=== PATIENT | male | born 1965 | race Caucasian/White ===

== ENCOUNTER 2018-04-01 14:05 | Inpatient (IN) | payer MEDICARE ==
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
--- NOTE | 2018-04-01 15:17 | RADIOLOGY REPORT (SQ) ---
EXAM DESCRIPTION: CHEST SINGLE VIEW COMPLETED DATE/TIME: 04/01/2018 2:59 pm REASON FOR STUDY: sudden hypoxemia COMPARISON: None. EXAM PARAMETERS: NUMBER OF VIEWS: One view. TECHNIQUE: Single frontal radiographic view of the chest acquired. RADIATION DOSE: NA LIMITATIONS: None. FINDINGS: LUNGS AND PLEURA: There is slight haziness in right lower lung. Minimal pleural effusions cannot be excluded. MEDIASTINUM AND HILAR STRUCTURES: No masses. Contour normal. HEART AND VASCULAR STRUCTURES: Heart normal in size. Normal vasculature. BONES: No acute findings. HARDWARE: None in the chest. OTHER: No other significant finding. IMPRESSION: Minimal pleural effusions. Cannot exclude a very limited middle lobe or right lower lob e pneumonia. TECHNICAL DOCUMENTATION: JOB ID: [id number] [employer]- All Rights Reserved Reading location - IP/workstation name: [email or web address]
[2018-04-01 15:32] LABS: VENOUS BLOOD BASE EXCESS 5.8 mmol/L; VENOUS BLOOD HCO3 34.6 mmol/L (20-32); VENOUS BLOOD PH 7.34 (7.30-7.42)
[2018-04-01 15:35] LABS: ABSOLUTE BASOPHILS # (AUTO) 0.1 10^3/uL (0.0-0.2); ABSOLUTE LYMPHOCYTES (AUTO) 0.7 10^3/uL (0.5-4.7); ABSOLUTE MONOCYTES (AUTO) 0.8 10^3/uL (0.1-1.4); ABSOLUTE NEUT (AUTO) 4.9 10^3/uL (1.7-8.2); BASOPHILS % (AUTO) 0.9 % (0-2); EOSINOPHILS % (AUTO) 0.2 % (0-6); HEMATOCRIT 55.9 % (37.9-51.0); HEMOGLOBIN 17.6 g/dL (13.5-17.0); LYMPHOCYTES % (AUTO) 11.5 % (13-45); MEAN CORPUSCULAR HEMOGLOBIN 29.6 pg (27.0-33.4); MEAN CORPUSCULAR HGB CONC 31.5 g/dL (32.0-36.0); MEAN CORPUSCULAR VOLUME 94 fl (80-97); MONOCYTES % (AUTO) 12.5 % (3-13); PLATELET COUNT 217 10^3/uL (150-450); RED BLOOD COUNT 5.93 10^6/uL (4.35-5.55); RED CELL DISTRIBUTION WIDTH 18.1 % (11.5-14.0); SEGMENTED NEUTROPHILS % (AUTO) 74.9 % (42-78); TOTAL CELLS COUNTED % (AUTO) 100 %; WHITE BLOOD COUNT 6.5 10^3/uL (4.0-10.5)
[2018-04-01 15:36] LABS: INTERNATIONAL RATION (INR) 1.32
[2018-04-01 15:42] LABS: VENOUS BLOOD PCO2 66.4 mmHg (35-63)
[2018-04-01 15:56] LABS: ALANINE AMINOTRANSFERASE 149 U/L (21-72); ALBUMIN 3.2 g/dL (3.5-5.0); ALKALINE PHOSPHATASE 74 U/L (38-126); ANION GAP 9 (5-19); ASPARTATE AMINO TRANSFERASE 248 U/L (17-59); BILIRUBIN,TOTAL 1.2 mg/dL (0.2-1.3); BLOOD UREA NITROGEN 35 mg/dL (7-20); CARBON DIOXIDE 38 mmol/L (22-30); CHLORIDE 88 mmol/L (98-107); CREATINE KINASE 39 U/L (55-170); GLUCOSE 93 mg/dL (75-110); POTASSIUM 4.9 mmol/L (3.6-5.0); SODIUM 134.8 mmol/L (137-145); TOTAL PROTEIN 7.6 g/dL (6.3-8.2)
[2018-04-01 16:08] LABS: CREATINE KINASE MB 2.31 ng/mL (<4.55)
[2018-04-01 16:13] LABS: TROPONIN I 0.046 ng/mL
--- NOTE | 2018-04-01 16:44 | RADIOLOGY REPORT (SQ) ---
EXAM DESCRIPTION: CTA CHEST COMPLETED DATE/TIME: 04/01/2018 4:28 pm REASON FOR STUDY: severe hypoxemia COMPARISON: None. TECHNIQUE: CT scan of the chest performed using helical scanning technique with dynamic intravenous contrast injection. Images reviewed with lung, soft tissue and bone windows. Reconstructed coronal and sagittal MPR images reviewed. Additional 3 dimensional post-processing performed to develop Maximal Intensity Projection images (IN P). All images stored on PACS. All CT scanners at this facility use dose modulation, iterative reconstruction, and/or weight based d osing when appropriate to reduce radiation dose to as low as reasonably achievable (ALARA). [facility]: Dose Right [facility]: CareDose [facility]: Dose Right [facility]: Teradose 4D [facility]: Faculte CONTRAST TYPE AND DOSE: contrast/concentration: Isovue 370.00 mg/ml; Total Contrast Delivered: 82.9 ml; Total Saline Delivered: 85.1 ml Contrast bolus optimized for the pulmonary arteries. Not diagnostic for the aorta. RENAL FUNCTION: BUN 35 creatinine 1.2 RADIATION DOSE: CT Rad equipment meets quality standard of care and radiation dose reduction techniq ues were employed. CTDIvol: 24.8 - 32.0 mGy. DLP: 1222 mGy-cm. . LIMITATIONS: None. FINDINGS: LUNGS AND PLEURA: There is a moderate right pleural effusion and there is a small left ple ural effusion. There is compressive atelectasis in the adjacent lung. There is greater opacificatio n in the right lower lobe. AORTA AND GREAT VESSELS: No aneurysm. Contrast bolus not optimized for the aorta. HEART: No pericardial effusion. PULMONARY ARTERIES: No emboli visualized in the main pulmonary arteries or the segmental branches. HILAR AND MEDIASTINAL STRUCTURES: No identified masses or abnormal nodes. HARDWARE: None in the chest. UPPER ABDOMEN: A small gallstone is seen. Fatty infiltration of the liver. THYROID AND OTHER SOFT TISSUES: No masses. No adenopathy. BONES: No acute or significant finding. 3D MIPS: Confirm above findings. OTHER: No other significant finding. IMPRESSION: 1. There is no evidence of pulmonary embolus. 2. Moderate right pleural effusion with small left pleural effusion. 3. Airspace disease in the right base. Atelectasis versus pneumonia. Minimal subsegmental atelecta sis in the left base. 4. Cholelithiasis. Fatty infiltration of the liver. COMMENT: Quality ID # [id number]: Final reports with documentation of one or more dose reduction techniques (e.g., Automated exposure control, adjustment of the mA and/or kV according to patient size, use of iterative reconstruction technique) TECHNICAL DOCUMENTATION: JOB ID: [id number] [employer]- All Rights Reserved Reading location - IP/workstation name: [email or web address]
[2018-04-01] MEDS ORDERED: FAMOTIDINE INJ/PF 20 MG/2 ML SDV IV ONE (16:49)
[2018-04-01] MEDS ORDERED: METHYLPREDNISOLONE INJ 125 MG/2 ML SDV IV ONE (16:49)
[2018-04-01] MEDS ORDERED: DIPHENHYDRAMINE HCL 50 MG/ML VIAL IV ONE (16:49)
[2018-04-01] MEDS ORDERED: CEFTRIAXONE INJ 1000 MG VIAL IV ONE (16:50)
[2018-04-01] MEDS ORDERED: METHYLPREDNISOLONE INJ 125 MG/2 ML SDV ONE (16:52)
[2018-04-01] MEDS ORDERED: DIPHENHYDRAMINE HCL 50 MG/ML VIAL ONE (16:52)
[2018-04-01 18:20] LABS: APPEARANCE,URINE SLIGHTLY-CLOUDY; BILIRUBIN,URINE NEGATIVE (NEGATIVE); COLOR,URINE AMBER; GLUCOSE, URINE 50 mg/dL (NEGATIVE); KETONES,URINE NEGATIVE (NEGATIVE); LEUKOCYTE ESTERASE,URINE NEGATIVE (NEGATIVE); NITRITE,URINE NEGATIVE (NEGATIVE); PROTEIN,URINE 30 mg/dL (NEGATIVE); URINE SPECIFIC GRAVITY 1.021
[2018-04-01] MEDS ORDERED: IPRATROPIUM/ALBUTEROL 0.5-2.5 MG/3 ML AMPUL NEB PRN (18:38)
[2018-04-01] MEDS ORDERED: DEXTROSE 40% GEL 15 GM TUBE PO PRN ×2 (18:38)
[2018-04-01] MEDS ORDERED: GLUCAGON,HUMAN RECOMB 1 MG INJ SUBCUT PRN (18:38)
[2018-04-01] MEDS ORDERED: DEXTROSE 50%-WATER 25 GM/50 ML DISP.SYRIN IV PRN ×2 (18:38)
[2018-04-01 19:32] LABS: URINE AMPHETAMINES SCREEN NEGATIVE; URINE BARBITURATES SCREEN NEGATIVE; URINE BENZODIAZEPINES SCREEN NEGATIVE; URINE COCAINE SCREEN NEGATIVE; URINE MARIJUANA (THC) SCREEN UNCONFIRMED POSITIVE; URINE METHADONE SCREEN NEGATIVE; URINE PHENCYCLIDINE SCREEN NEGATIVE
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
[2018-04-01] MEDS ORDERED: LEVOFLOXACIN 750 MG/D5W RTU 750 MG/150 ML RTUPB IV ONE (20:00)
--- NOTE | 2018-04-01 20:19 | RADIOLOGY REPORT (SQ) ---
EXAM DESCRIPTION: CT HEAD WITHOUT COMPLETED DATE/TIME: 04/01/2018 7:54 pm REASON FOR STUDY: Altered Mental Status COMPARISON: None. TECHNIQUE: Axial images acquired through the brain without intravenous contrast. Images reviewed wi th bone, brain and subdural windows. Additional sagittal and coronal reconstructions were generated. Images stored on PACS. All CT scanners at this facility use dose modulation, iterative reconstruction, and/or weight based d osing when appropriate to reduce radiation dose to as low as reasonably achievable (ALARA). [facility]: Dose Right [facility]: CareDose [facility]: Dose Right [facility]: Teradose 4D [facility]: Smart MaPS RADIATION DOSE: CT Rad equipment meets quality standard of care and radiation dose reduction techniq ues were employed. CTDIvol: 53.2 mGy. DLP: 1044 mGy-cm. mGy. LIMITATIONS: None. FINDINGS: VENTRICLES: Normal size and contour. CEREBRUM: No masses. No hemorrhage. No midline shift. No evidence for acute infarction. Normal gra y/white matter differentiation. No areas of low density in the white matter. CEREBELLUM: No masses. No hemorrhage. No alteration of density. No evidence for acute infarction. EXTRAAXIAL SPACES: No fluid collections. No masses. ORBITS AND GLOBE: No intra- or extraconal masses. Normal contour of globe without masses. CALVARIUM: No fracture. PARANASAL SINUSES: No fluid or mucosal thickening. SOFT TISSUES: No mass or hematoma. OTHER: No other significant finding. IMPRESSION: NORMAL BRAIN CT WITHOUT CONTRAST. EVIDENCE OF ACUTE STROKE: NO. COMMENT: Quality ID # [id number]: Final reports with documentation of one or more dose reduction techniques (e.g., Automated exposure control, adjustment of the mA and/or kV according to patient size, use of iterative reconstruction technique) TECHNICAL DOCUMENTATION: JOB ID: [id number] [employer]- All Rights Reserved Reading location - IP/workstation name: [email or web address]
[2018-04-01] MEDS ORDERED: NICOTINE 21 MG/24 HR PATCH.TD24 TD ONE (20:30)
--- NOTE | 2018-04-01 22:28 | EKG REPORT ---
SEVERITY:- BORDERLINE ECG - SINUS RHYTHM PROBABLE LEFT ATRIAL ABNORMALITY BORDERLINE T WAVE ABNORMALITIES : Confirmed by: Timoteo Greenwood 01-Apr-2018 22:27:55
[2018-04-01] MEDS: METHYLPREDNISOLONE INJ 40 MG/1 ML SDV IV SCH (23:03)
[2018-04-01] MEDS: DEXTROSE 5%-1/2 NORMAL SALINE 1,000 ML IV PRN (23:05)
[2018-04-02] MEDS: METHYLPREDNISOLONE INJ 40 MG/1 ML SDV IV SCH ×3 (05:03→21:21)
[2018-04-02 07:45] LABS: HEMATOCRIT 54.4 % (37.9-51.0); HEMOGLOBIN 17.6 g/dL (13.5-17.0); MEAN CORPUSCULAR HEMOGLOBIN 29.8 pg (27.0-33.4); MEAN CORPUSCULAR HGB CONC 32.3 g/dL (32.0-36.0); MEAN CORPUSCULAR VOLUME 92 fl (80-97); PLATELET COUNT 147 10^3/uL (150-450); RED CELL DISTRIBUTION WIDTH 17.3 % (11.5-14.0)
[2018-04-02 09:30] LABS: ALANINE AMINOTRANSFERASE 118 U/L (21-72); ALKALINE PHOSPHATASE 65 U/L (38-126); ANION GAP 9 (5-19); ASPARTATE AMINO TRANSFERASE 105 U/L (17-59); BILIRUBIN,DIRECT 0.8 mg/dL (0.0-0.4); BLOOD UREA NITROGEN 26 mg/dL (7-20); CALCIUM 9.3 mg/dL (8.4-10.2); CARBON DIOXIDE 38 mmol/L (22-30); CHLORIDE 93 mmol/L (98-107); GLUCOSE 121 mg/dL (75-110); SODIUM 139.5 mmol/L (137-145); TOTAL PROTEIN 6.6 g/dL (6.3-8.2)
[2018-04-02 10:14] LABS: ARTERIAL BLOOD H2CO3 2.01 mmol/L (1.05-1.35); ARTERIAL BLOOD HCO3 39.9 mmol/L (20-26); ARTERIAL BLOOD O2 SATURATION 91.4 % (94-98); ARTERIAL BLOOD PCO2 66.9 mmHg (35-45); ARTERIAL BLOOD PH 7.39 (7.35-7.45); ARTERIAL BLOOD PO2 63.3 mmHg (80-100); ARTERIAL BLOOD TOTAL CO2 41.9 mmol/L (23-27)
[2018-04-02 10:23] LABS: ARTERIAL BLOOD FIO2 3L
[2018-04-02 11:01] LABS: FREE T3 3.79 pg/mL (2.77-5.27); FREE T4 (FREE THYROXINE) 0.92 ng/dL (0.78-2.19)
[2018-04-02 11:15] LABS: THYROID STIMULATING HORMONE 0.4 uIU/mL (0.47-4.68)
[2018-04-02] MEDS ORDERED: LEVALBUTEROL HCL NEB 1.25 MG/3 ML AMPUL NEB PRN (11:32)
[2018-04-02] MEDS: NICOTINE 21 MG/24 HR PATCH.TD24 TD SCH ×2 (12:19→13:45)
[2018-04-02] MEDS: IPRATROPIUM/ALBUTEROL 0.5-2.5 MG/3 ML AMPUL NEB SCH ×2 (13:03→19:43)
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
[2018-04-02] MEDS: LEVOFLOXACIN 750 MG/D5W RTU 750 MG/150 ML RTUPB IV SCH (18:32)
[2018-04-02] MEDS: DEXTROSE 5%-1/2 NORMAL SALINE 1,000 ML IV PRN (18:32)
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
[2018-04-03] MEDS: IPRATROPIUM/ALBUTEROL 0.5-2.5 MG/3 ML AMPUL NEB SCH ×4 (01:54→19:52)
[2018-04-03] MEDS ORDERED: METOPROLOL TARTRATE 25 MG TABLET PO ONE (02:00)
--- NOTE | 2018-04-03 11:48 | Physician Advisory Note ---
Physician Advisor ProgressNote .: [facility] have [facility] medical record for this patient. Physician Advisor Statement: Nice documenting of pleural effusion, Ac Resp Failure (O2 sat 50% initially for EMS per nurse note, pt persistently needing 4+L O2), & the mental status changes of hypersomnolence & difficulty arousing. Please consider documenting, if you agree: 1. "Pneumonia, suspect gram-___ type, evidenced by " [Any cough/sputum/ rales/rhonchi/egophony?] - H&P already states decreased BS, describes AMS. Pt has pleural effusion, infiltrate. - ED dr/nursing document SOB, WALLACE, weakness. 2. "Delirium, due to " ['metabolic encephalopathy due to hypercapnea + hypoxemia + pneumonia ... on top of TBI'?] - Code for delirium indicates a psychiatric cause such as shelley or dementia, low acuity. - Code for encephalopathy indicates a medical cause, higher acuity. 3. "COPD w/exacerbation" - H&P suggests this dx; please include this in all notes unless stating "ruled out". - Pt smokes, (+)wheezing, getting Solumedrol... Thanks! CK
[2018-04-03] MEDS: METHYLPREDNISOLONE INJ 40 MG/1 ML SDV IV SCH ×2 (12:02→21:33)
[2018-04-03] MEDS: NICOTINE 21 MG/24 HR PATCH.TD24 TD SCH ×2 (12:03→14:38)
[2018-04-03] MEDS: METOPROLOL TARTRATE 25 MG TABLET PO SCH ×2 (12:06→17:19)
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
[2018-04-03] MEDS ORDERED: DIVALPROEX SODIUM 500 MG TAB.SR.24H PO ONE (13:00)
[2018-04-03] MEDS ORDERED: METHYLPHENIDATE HCL 5 MG TABLET PO PRN (13:29)
[2018-04-03] MEDS: METHYLPHENIDATE HCL 5 MG TABLET PO SCH (14:34)
[2018-04-03] MEDS ORDERED: FLUOXETINE HCL 20 MG CAPSULE PO ONE (14:45)
[2018-04-03] MEDS: LEVOFLOXACIN 750 MG/D5W RTU 750 MG/150 ML RTUPB IV SCH (17:22)
--- NOTE | 2018-04-03 20:44 | XCELERA REPORT ---
[address] [address] Transthoracic Echocardiogram Report Name: NAZARIO CASH Age: 52 yrs Gender: Male : 1965 Patient Status: Inpatient Patient Location: [address] [place] [address] Study Date: 04/03/2018 09:12 AM Height: 72 in Weight: 264 lb BSA: 2.4 m2 Procedure: A complete two-dimensional transthoracic echocardiogram was performed (2D, M-mode, spectral and color flow Doppler). The study was technically difficult with many images being suboptimal in quality. Reason For Study: Pleural effusion Ordering Physician: DIETER QUIROZ Performed By: Viri Teran Interpretation Summary The left ventricular ejection fraction is normal. Doppler measurements suggest pseudonormalized left ventricular relaxation, which is associated with grade II/IV or mild to moderate diastolic dysfunction There is mild concentric left ventricular hypertrophy. The left ventricle is grossly normal size. Wall motion cannot be accurately commented on, but no definite regional wall motion abnormalities noted. The right ventricle is mildly dilated. The right ventricular systolic function is borderline reduced. There is a trace amount of mitral regurgitation There is no mitral valve stenosis. There is no aortic valve stenosis No aortic regurgitation is present. There is a trace to mild amount of tricuspid regurgitation There is mild to moderate pulmonary hypertension by echo Right ventricular systolic pressure is estimated to be elevated at 40- 50mmHg. The aortic root is not well visualized but is probably normal size. The inferior vena cava was not well visualized There is no pericardial effusion. MMode/2D Measurements & Calculations RVDd: 3.1 cm LVIDd: 4.6 cm FS: 27.9 % Ao root diam: 2.6 cm IVSd: 1.0 cm LVIDs: 3.3 cm EDV(Teich): 96.0 ml LVPWd: 1.0 cm ESV(Teich): 44.1 ml Ao root area: 5.3 cm2 EF(Teich): 54.1 % LA dimension: 4.0 cm Doppler Measurements & Calculations MV E max ambika: MV P1/2t max ambika: Ao V2 max: LV V1 max P.6 cm/sec 108.1 cm/sec 158.8 cm/sec 9.7 mmHg MV A max ambika: MV P1/2t: 45.8 msec Ao max PG: LV V1 max: 83.9 cm/sec 10.1 mmHg 155.5 cm/sec MV E/A: 1.3 MVA(P1/2t): 4.8 cm2 MV dec slope: 691.4 cm/sec2 MV dec time: 0.15 sec PA V2 max: TR max ambika: 108.1 cm/sec 289.1 cm/sec PA max PG: TR max P.4 mmHg 4.7 mmHg Left Ventricle The left ventricle is grossly normal size. There is mild concentric left ventricular hypertrophy. The left ventricular ejection fraction is normal. Doppler measurements suggest pseudonormalized left ventricular relaxation, which is associated with grade II/IV or mild to moderate diastolic dysfunction. Wall motion cannot be accurately commented on, but no definite regional wall motion abnormalities noted. Right Ventricle The right ventricle is mildly dilated. The right ventricular systolic function is borderline reduced. Atria The right atrium is mildly dilated. The left atrium is mildly dilated. Interarterial septum not well visualized and not well dopplered. Cannot comment on ASD/PFO presence. Mitral Valve The mitral valve is grossly normal. There is no mitral valve stenosis. There is a trace amount of mitral regurgitation. Aortic Valve The aortic valve is not well visualized secondary to technical limitations. There is no aortic valve stenosis. No aortic regurgitation is present. Tricuspid Valve The tricuspid valve is not well visualized secondary to technical limitations. There is no tricuspid stenosis. There is a trace to mild amount of tricuspid regurgitation. There is mild to moderate pulmonary hypertension by echo. Right ventricular systolic pressure is estimated to be elevated at 40-50mmHg. Pulmonic Valve The pulmonic valve is not well visualized. Great Vessels The aortic root is not well visualized but is probably normal size. The inferior vena cava was not well visualized. Effusions There is no pericardial effusion. : DIETER QUIROZ > [place] [place]
[2018-04-03] MEDS: DEXTROSE 5%-1/2 NORMAL SALINE 1,000 ML IV PRN (21:35)
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
[2018-04-04] MEDS: IPRATROPIUM/ALBUTEROL 0.5-2.5 MG/3 ML AMPUL NEB SCH ×4 (00:43→20:00)
[2018-04-04] MEDS: METHYLPHENIDATE HCL 5 MG TABLET PO SCH ×3 (05:37→14:37)
[2018-04-04 08:22] LABS: HEMOGLOBIN 17.3 g/dL (13.5-17.0); MEAN CORPUSCULAR HEMOGLOBIN 29.4 pg (27.0-33.4); MEAN CORPUSCULAR HGB CONC 31.5 g/dL (32.0-36.0); MEAN CORPUSCULAR VOLUME 93 fl (80-97); PLATELET COUNT 132 10^3/uL (150-450); RED BLOOD COUNT 5.89 10^6/uL (4.35-5.55); RED CELL DISTRIBUTION WIDTH 17.7 % (11.5-14.0)
[2018-04-04 09:04] LABS: WHITE BLOOD COUNT 13.1 10^3/uL (4.0-10.5)
[2018-04-04 09:06] LABS: ABSOLUTE LYMPHOCYTES# (MANUAL) 0.7 10^3/uL (0.5-4.7); ABSOLUTE MONOCYTES # (MANUAL) 0.7 10^3/uL (0.1-1.4); ABSOLUTE NEUTROPHILS# (MANUAL) 11.8 10^3/uL (1.7-8.2); ANISOCYTOSIS 2+; BASOPHILS % (MANUAL) 0 % (0-2); EOSINOPHILS % (MANUAL) 0 % (0-6); LYMPHOCYTES % (MANUAL) 5 % (13-45); MONOCYTES % (MANUAL) 5 % (3-13); NUCLEATED RED BLOOD CELLS 1 /100 WBC (0); PLATELET COMMENT ADEQUATE; SEGMENTED NEUTROPHILS % (MAN) 90 % (42-78); TOTAL CELLS COUNTED 100
[2018-04-04] MEDS: NICOTINE 21 MG/24 HR PATCH.TD24 TD SCH ×2 (09:33→13:01)
[2018-04-04] MEDS: FLUOXETINE HCL 20 MG CAPSULE PO SCH (09:33)
[2018-04-04] MEDS: PREDNISONE 20 MG TABLET PO SCH ×2 (09:33→17:48)
[2018-04-04] MEDS: METOPROLOL TARTRATE 25 MG TABLET PO SCH ×2 (09:34→17:48)
[2018-04-04 11:10] LABS: BLOOD UREA NITROGEN 26 mg/dL (7-20); CALCIUM 9.7 mg/dL (8.4-10.2); CARBON DIOXIDE 37 mmol/L (22-30); CHLORIDE 95 mmol/L (98-107); GLUCOSE 147 mg/dL (75-110); POTASSIUM 4.5 mmol/L (3.6-5.0)
[2018-04-04 11:11] LABS: ANION GAP 6 (5-19); SODIUM 138.4 mmol/L (137-145)
[2018-04-04 11:54] LABS: ARTERIAL BLOOD H2CO3 1.61 mmol/L (1.05-1.35); ARTERIAL BLOOD HCO3 34.5 mmol/L (20-26); ARTERIAL BLOOD O2 SATURATION 97.5 % (94-98); ARTERIAL BLOOD PCO2 53.4 mmHg (35-45); ARTERIAL BLOOD PH 7.43 (7.35-7.45); ARTERIAL BLOOD PO2 97.4 mmHg (80-100); ARTERIAL BLOOD TOTAL CO2 36.1 mmol/L (23-27)
[2018-04-04 11:55] LABS: ARTERIAL BLOOD FIO2 4L
[2018-04-04] MEDS ORDERED: NICOTINE 21 MG/24 HR PATCH.TD24 TD ONE (17:00)
[2018-04-04] MEDS: CEFTRIAXONE 2 GM/D5W RTU 2 GM/50 ML RTUPB IV SCH (17:48)
[2018-04-04] MEDS ORDERED: HYDRALAZINE HCL INJ/PF 20 MG/1 ML SDV IV PRN (18:16)
--- NOTE | 2018-04-04 18:33 | PDOC PROGRESS REPORT ---
Subjective Progress Note for:: 04/04/18 Subjective:: Doing a little better. Continues to require 3-4L supplemental O2 which is new for him. SOB with movement. Very eager for discharge to go home. Denies fevers, chills, CP, abdominal pain, NV. Tolerating NPPV overnight. Mother at bedside. Reason For Visit: ACUTE RESPIRATORY FAILURE,PLEURAL EFFUSION Physical Exam Vital Signs: Temp Pulse Resp BP Pulse Ox 98.6 F 88 18 180/88 H 95 04/04/18 16:31 04/04/18 16:31 04/04/18 16:31 04/04/18 16:31 04/04/18 16:00 Intake & Output 04/03/18 04/04/18 04/05/18 06:59 06:59 06:59 Intake Total 1615 2362 430 Output Total 425 700 Balance 1190 2362 -270 Weight 120.8 kg 120.8 kg General appearance: PRESENT: no acute distress, cooperative, obese Mouth exam: PRESENT: moist Respiratory exam: PRESENT: decreased breath sounds, wheezes, other - On supplemental o2 Cardiovascular exam: PRESENT: +S1, +S2, tachycardia GI/Abdominal exam: PRESENT: soft, other - Vertical incision midline, c/d/i. ABSENT: tenderness Neurological exam: PRESENT: alert, awake, CN II-XII grossly intact Psychiatric exam: PRESENT: anxious Results Laboratory Results: 04/04/18 07:51 04/04/18 10:38 04/04/18 04/04/18 04/04/18 07:51 07:51 10:38 WBC 13.1 H D RBC 5.89 H Hgb 17.3 H Hct 55.0 H MCV 93 MCH 29.4 MCHC 31.5 L RDW 17.7 H Plt Count 132 L Seg Neutrophils % Not Reportable Lymphocytes % Not Reportable Monocytes % Not Reportable Eosinophils % Not Reportable Basophils % Not Reportable Absolute Neutrophils Not Reportable Absolute Lymphocytes Not Reportable Absolute Monocytes Not Reportable Absolute Eosinophils Not Reportable Absolute Basophils Not Reportable Carbonic Acid HCO3/H2CO3 Ratio ABG pH ABG pCO2 ABG pO2 ABG HCO3 ABG O2 Saturation ABG Base Excess FiO2 Sodium Cancelled 138.4 Potassium Cancelled 4.5 Chloride Cancelled 95 L Carbon Dioxide Cancelled 37 H Anion Gap Cancelled 6 BUN Cancelled 26 H Creatinine Cancelled 0.72 Est GFR ( Amer) Cancelled > 60 Est GFR (Non-Af Amer) Cancelled > 60 Glucose Cancelled 147 H Calcium Cancelled 9.7 04/04/18 11:10 WBC RBC Hgb Hct MCV MCH MCHC RDW Plt Count Seg Neutrophils % Lymphocytes % Monocytes % Eosinophils % Basophils % Absolute Neutrophils Absolute Lymphocytes Absolute Monocytes Absolute Eosinophils Absolute Basophils Carbonic Acid 1.61 H HCO3/H2CO3 Ratio 21:1 ABG pH 7.43 ABG pCO2 53.4 H ABG pO2 97.4 ABG HCO3 34.5 H ABG O2 Saturation 97.5 ABG Base Excess 8.0 FiO2 4L Sodium Potassium Chloride Carbon Dioxide Anion Gap BUN Creatinine Est GFR ( Amer) Est GFR (Non-Af Amer) Glucose Calcium Impressions: Head CT 04/01/18 00:00 IMPRESSION: NORMAL BRAIN CT WITHOUT CONTRAST. EVIDENCE OF ACUTE STROKE: NO. Chest X-Ray 04/01/18 14:29 IMPRESSION: Minimal pleural effusions. Cannot exclude a very limited middle lobe or right lower lobe pneumonia. Chest/Abdomen CTA 04/01/18 14:29 IMPRESSION: 1. There is no evidence of pulmonary embolus. 2. Moderate right pleural effusion with small left pleural effusion. 3. Airspace disease in the right base. Atelectasis versus pneumonia. Minimal subsegmental atelectasis in the left base. 4. Cholelithiasis. Fatty infiltration of the liver. Assessment & Plan - Diagnosis (1) Acute respiratory failure Qualifiers: Respiratory failure complication: hypoxia and hypercapnia Qualified Code(s) : J96.01 - Acute respiratory failure with hypoxia; J96.02 - Acute respiratory failure with hypercapnia; J96.02 - Acute respiratory failure with hypercapnia; J96.02 - Acute respiratory failure with hypercapnia Is this a current diagnosis for this admission?: Yes Plan: Improving. Suspect multifactorial, including possible PNA, pleural effusion, and COPD (?) -Continue with O2, titrate down with O2 sat of >90% -Continue nebs and ceftriaxone, blood cultures NGTD -Continue prednisone 40mg every 12, decreased to daily on 04/05 -Pulmonology following, appreciate recs (2) HTN (hypertension) Is this a current diagnosis for this admission?: Yes Plan: BP elevated this admission, could be due to steroids - Currently on lopressor 25mg BID - Will started Lasix 40mg IV (first dose today) - Added hydralazine 10mg IV q6 hours PRN SBP>160 (3) Bipolar disorder Is this a current diagnosis for this admission?: Yes Plan: Continue current medications. (4) Nicotine addiction Is this a current diagnosis for this admission?: Yes Plan: Smoking cessation provided. Vows not to smoke again (5) Abnormal LFTs (liver function tests) Is this a current diagnosis for this admission?: Yes Plan: Unclear etiology, will repeat in AM - Time Time Spent with patient: 15-24 minutes Smoking Cessation Education: 3 to 10 minutes Anticipated discharge: Home Within: within 48 hours
[2018-04-04] MEDS: DIVALPROEX SODIUM 500 MG TAB.SR.24H PO SCH (21:00)
[2018-04-05] MEDS: DEXTROSE 5%-1/2 NORMAL SALINE 1,000 ML IV PRN (02:51)
[2018-04-05] MEDS: IPRATROPIUM/ALBUTEROL 0.5-2.5 MG/3 ML AMPUL NEB SCH ×4 (03:01→19:49)
[2018-04-05] MEDS: METHYLPHENIDATE HCL 5 MG TABLET PO SCH ×3 (05:46→14:59)
[2018-04-05 09:40] LABS: INTERNATIONAL RATION (INR) 1.17; PROTHROMBIN TIME 15.5 SEC (11.4-15.4)
[2018-04-05 09:46] LABS: ABSOLUTE LYMPHOCYTES (AUTO) 0.8 10^3/uL (0.5-4.7); ABSOLUTE MONOCYTES (AUTO) 0.8 10^3/uL (0.1-1.4); ABSOLUTE NEUT (AUTO) 7.9 10^3/uL (1.7-8.2); BASOPHILS % (AUTO) 0.2 % (0-2); HEMOGLOBIN 17.4 g/dL (13.5-17.0); LYMPHOCYTES % (AUTO) 8.7 % (13-45); MEAN CORPUSCULAR HEMOGLOBIN 29.2 pg (27.0-33.4); MEAN CORPUSCULAR HGB CONC 31.5 g/dL (32.0-36.0); MEAN CORPUSCULAR VOLUME 93 fl (80-97); MONOCYTES % (AUTO) 8.3 % (3-13); PLATELET COUNT 106 10^3/uL (150-450); RED BLOOD COUNT 5.95 10^6/uL (4.35-5.55); RED CELL DISTRIBUTION WIDTH 17.5 % (11.5-14.0); SEGMENTED NEUTROPHILS % (AUTO) 82.8 % (42-78); TOTAL CELLS COUNTED % (AUTO) 100 %; WHITE BLOOD COUNT 9.5 10^3/uL (4.0-10.5)
[2018-04-05 09:51] LABS: HEMATOCRIT 55.2 % (37.9-51.0)
[2018-04-05 09:58] LABS: ALANINE AMINOTRANSFERASE 54 U/L (21-72); ALBUMIN 2.8 g/dL (3.5-5.0); ALKALINE PHOSPHATASE 51 U/L (38-126); ANION GAP 12 (5-19); ASPARTATE AMINO TRANSFERASE 31 U/L (17-59); BILIRUBIN,DIRECT 0.7 mg/dL (0.0-0.4); BILIRUBIN,TOTAL 1.2 mg/dL (0.2-1.3); BLOOD UREA NITROGEN 18 mg/dL (7-20); CALCIUM 9.2 mg/dL (8.4-10.2); CARBON DIOXIDE 36 mmol/L (22-30); CHLORIDE 92 mmol/L (98-107); GLUCOSE 203 mg/dL (75-110); POTASSIUM 3.7 mmol/L (3.6-5.0); SODIUM 139.5 mmol/L (137-145); TOTAL PROTEIN 6.1 g/dL (6.3-8.2)
[2018-04-05] MEDS: FLUOXETINE HCL 20 MG CAPSULE PO SCH (10:15)
[2018-04-05] MEDS: FUROSEMIDE INJ/PF 40 MG/4 ML SDV IV SCH (10:16)
[2018-04-05] MEDS: PREDNISONE 20 MG TABLET PO SCH (10:16)
[2018-04-05] MEDS: NICOTINE 21 MG/24 HR PATCH.TD24 TD SCH (10:18)
[2018-04-05] MEDS: METOPROLOL TARTRATE 25 MG TABLET PO SCH ×2 (10:18→19:05)
--- NOTE | 2018-04-05 15:29 | PDOC PROGRESS REPORT ---
Subjective Progress Note for:: 04/05/18 Subjective:: Doing much better. O2 requirement decreased and now with little to no supplemental O2. No major complaints. Will plan for discharge tomorrow AM. Reason For Visit: ACUTE RESPIRATORY FAILURE,PLEURAL EFFUSION Physical Exam Vital Signs: Temp Pulse Resp BP Pulse Ox 98.4 F 76 18 169/72 H 97 04/05/18 12:00 04/05/18 12:00 04/05/18 12:00 04/05/18 12:00 04/05/18 12:00 Intake & Output 04/04/18 04/05/18 04/06/18 06:59 06:59 06:59 Intake Total 2362 2371 Output Total 4888 Balance 2362 -2601 Weight 120.8 kg 120.9 kg General appearance: PRESENT: no acute distress, obese, other - Resting in bed Mouth exam: PRESENT: moist Respiratory exam: PRESENT: crackles - occasional, prolonged expiratory phas, unlabored Cardiovascular exam: PRESENT: +S1, +S2. ABSENT: tachycardia GI/Abdominal exam: PRESENT: soft Extremities exam: PRESENT: full ROM Neurological exam: PRESENT: alert, awake, CN II-XII grossly intact Psychiatric exam: PRESENT: appropriate affect Results Laboratory Results: 04/05/18 09:00 04/05/18 09:00 04/05/18 04/05/18 09:00 09:00 WBC 9.5 RBC 5.95 H Hgb 17.4 H Hct 55.2 H MCV 93 MCH 29.2 MCHC 31.5 L RDW 17.5 H Plt Count 106 L Seg Neutrophils % 82.8 H Lymphocytes % 8.7 L Monocytes % 8.3 Eosinophils % 0.0 Basophils % 0.2 Absolute Neutrophils 7.9 Absolute Lymphocytes 0.8 Absolute Monocytes 0.8 Absolute Eosinophils 0.0 Absolute Basophils 0.0 Sodium 139.5 Potassium 3.7 Chloride 92 L Carbon Dioxide 36 H Anion Gap 12 BUN 18 Creatinine 0.68 Est GFR ( Amer) > 60 Est GFR (Non-Af Amer) > 60 Glucose 203 H Calcium 9.2 Total Bilirubin 1.2 AST 31 ALT 54 Alkaline Phosphatase 51 Total Protein 6.1 L Albumin 2.8 L Impressions: Head CT 04/01/18 00:00 IMPRESSION: NORMAL BRAIN CT WITHOUT CONTRAST. EVIDENCE OF ACUTE STROKE: NO. Chest X-Ray 04/01/18 14:29 IMPRESSION: Minimal pleural effusions. Cannot exclude a very limited middle lobe or right lower lobe pneumonia. Chest/Abdomen CTA 04/01/18 14:29 IMPRESSION: 1. There is no evidence of pulmonary embolus. 2. Moderate right pleural effusion with small left pleural effusion. 3. Airspace disease in the right base. Atelectasis versus pneumonia. Minimal subsegmental atelectasis in the left base. 4. Cholelithiasis. Fatty infiltration of the liver. Assessment & Plan - Diagnosis (1) Acute respiratory failure Qualifiers: Respiratory failure complication: hypoxia and hypercapnia Qualified Code(s) : J96.01 - Acute respiratory failure with hypoxia; J96.02 - Acute respiratory failure with hypercapnia; J96.02 - Acute respiratory failure with hypercapnia; J96.02 - Acute respiratory failure with hypercapnia Is this a current diagnosis for this admission?: Yes Plan: Improved Suspect multifactorial, including possible PNA, pleural effusion, and COPD (?) -Continue with O2, titrate down with O2 sat of >88-90% -Continue nebs and ceftriaxone, blood cultures NGTD, likely will discharge without antibiotics given improvement -Continue prednisone 40mg daily, d.c on 04/06 -Pulmonology following, appreciate recs (2) HTN (hypertension) Is this a current diagnosis for this admission?: Yes Plan: BP elevated this admission, could be due to steroids - Currently on lopressor 25mg BID; started Lisinopril 10mg PO daily on 04/05 - Continue Lasix 40mg IV, has been diuresing well - Hydralazine 10mg IV q6 hours PRN SBP>160 ordered (3) Bipolar disorder Is this a current diagnosis for this admission?: Yes Plan: Continue current medications. (4) Nicotine addiction Is this a current diagnosis for this admission?: Yes Plan: Smoking cessation provided. Vows not to smoke again (5) Abnormal LFTs (liver function tests) Is this a current diagnosis for this admission?: Yes Plan: Unclear etiology, downtrended on 04/05 - Time Time Spent with patient: Less than 15 minutes Anticipated discharge: Home Within: within 24 hours
[2018-04-05] MEDS: CEFTRIAXONE 2 GM/D5W RTU 2 GM/50 ML RTUPB IV SCH (19:03)
[2018-04-05] MEDS: LISINOPRIL 10 MG TABLET PO SCH (19:04)
[2018-04-05] MEDS: DIVALPROEX SODIUM 500 MG TAB.SR.24H PO SCH (21:14)
[2018-04-06] MEDS: IPRATROPIUM/ALBUTEROL 0.5-2.5 MG/3 ML AMPUL NEB SCH ×4 (02:17→19:46)
[2018-04-06] MEDS: METHYLPHENIDATE HCL 5 MG TABLET PO SCH ×3 (05:09→14:55)
[2018-04-06] MEDS: FUROSEMIDE INJ/PF 40 MG/4 ML SDV IV SCH (10:21)
[2018-04-06] MEDS: PREDNISONE 20 MG TABLET PO SCH (10:23)
[2018-04-06] MEDS: METOPROLOL TARTRATE 25 MG TABLET PO SCH ×2 (10:23→17:50)
[2018-04-06] MEDS: FLUOXETINE HCL 20 MG CAPSULE PO SCH (10:23)
[2018-04-06] MEDS: NICOTINE 21 MG/24 HR PATCH.TD24 TD SCH (10:23)
--- NOTE | 2018-04-06 16:25 | PDOC PROGRESS REPORT ---
Subjective Progress Note for:: 04/06/18 Subjective:: Feeling better. However last night when O2 taken off, sats dropped to mid 80s. Was placed on 3L overnight. This AM, had RT walk with patient and he was noted to de-saturate to 70s on RA. Patient admits that he became more short of breath. Otherwise he is feeling well. No fevers, chills, CP, abdominal pain, NV. PO intake good. Moving bowels. Agreeable not to discharge today and will reassess plans for discharge tomorrow AM. Reason For Visit: ACUTE RESPIRATORY FAILURE,PLEURAL EFFUSION Physical Exam Vital Signs: Temp Pulse Resp BP Pulse Ox 98.5 F 76 18 160/75 H 94 04/06/18 12:00 04/06/18 14:29 04/06/18 14:29 04/06/18 12:00 04/06/18 15:05 Intake & Output 04/05/18 04/06/18 04/07/18 06:59 06:59 06:59 Intake Total 2379 4402 Output Total 6751 4500 Balance -2604 -98 Weight 120.9 kg 120.1 kg General appearance: PRESENT: no acute distress, cooperative, obese, other - Sitting up in bed playing games on cell phone Mouth exam: PRESENT: moist Respiratory exam: PRESENT: decreased breath sounds, unlabored - more SOB after walking halls without O2. ABSENT: wheezes Cardiovascular exam: PRESENT: +S1, +S2 GI/Abdominal exam: PRESENT: soft. ABSENT: tenderness Extremities exam: PRESENT: full ROM Neurological exam: PRESENT: alert, awake, CN II-XII grossly intact Psychiatric exam: PRESENT: appropriate affect Results Laboratory Results: 04/05/18 09:00 04/05/18 09:00 Impressions: Head CT 04/01/18 00:00 IMPRESSION: NORMAL BRAIN CT WITHOUT CONTRAST. EVIDENCE OF ACUTE STROKE: NO. Chest X-Ray 04/01/18 14:29 IMPRESSION: Minimal pleural effusions. Cannot exclude a very limited middle lobe or right lower lobe pneumonia. Chest/Abdomen CTA 04/01/18 14:29 IMPRESSION: 1. There is no evidence of pulmonary embolus. 2. Moderate right pleural effusion with small left pleural effusion. 3. Airspace disease in the right base. Atelectasis versus pneumonia. Minimal subsegmental atelectasis in the left base. 4. Cholelithiasis. Fatty infiltration of the liver. Assessment & Plan - Diagnosis (1) Acute respiratory failure Qualifiers: Respiratory failure complication: hypoxia and hypercapnia Qualified Code(s) : J96.01 - Acute respiratory failure with hypoxia; J96.02 - Acute respiratory failure with hypercapnia; J96.02 - Acute respiratory failure with hypercapnia; J96.02 - Acute respiratory failure with hypercapnia Is this a current diagnosis for this admission?: Yes Plan: Improved, however not at baseline. Suspect multifactorial, including possible PNA, pleural effusion, and COPD. NO baseline O2 requirement prior to discharge. -Continue with O2, titrate down with O2 sat of >88-90% -Discontinued antibiotisc. Will continued prednisone 40mg daily for an additional day. Nebs PRN -Pulmonology following, appreciate recs - Will need home O2, social work aware - LIkely d/c on 04/07 (2) HTN (hypertension) Is this a current diagnosis for this admission?: Yes Plan: BP elevated this admission, could be due to steroids - Currently on lopressor 25mg BID and 10mg PO daily - Continue Lasix 40mg IV, has been diuresing well - Hydralazine 10mg IV q6 hours PRN SBP>160 ordered (3) Bipolar disorder Is this a current diagnosis for this admission?: Yes Plan: Continue current medications. (4) Nicotine addiction Is this a current diagnosis for this admission?: Yes Plan: Smoking cessation provided. Vows not to smoke again (5) Abnormal LFTs (liver function tests) Is this a current diagnosis for this admission?: Yes Plan: Unclear etiology, downtrended on 04/05, no further work up planned at this point. - Time Time Spent with patient: Less than 15 minutes Smoking Cessation Education: 3 to 10 minutes Anticipated discharge: Home with Homehealth Within: within 24 hours
[2018-04-06] MEDS: LISINOPRIL 10 MG TABLET PO SCH (17:50)
[2018-04-06] MEDS: CEFTRIAXONE 2 GM/D5W RTU 2 GM/50 ML RTUPB IV SCH (17:50)
[2018-04-06] MEDS: DIVALPROEX SODIUM 500 MG TAB.SR.24H PO SCH (21:32)
[2018-04-07] MEDS: IPRATROPIUM/ALBUTEROL 0.5-2.5 MG/3 ML AMPUL NEB SCH ×3 (02:07→13:17)
[2018-04-07] MEDS: METHYLPHENIDATE HCL 5 MG TABLET PO SCH ×3 (05:59→15:25)
[2018-04-07] MEDS: FUROSEMIDE INJ/PF 40 MG/4 ML SDV IV SCH (10:16)
[2018-04-07] MEDS: FLUOXETINE HCL 20 MG CAPSULE PO SCH (10:18)
[2018-04-07] MEDS: PREDNISONE 20 MG TABLET PO SCH (10:18)
[2018-04-07] MEDS: METOPROLOL TARTRATE 25 MG TABLET PO SCH (10:19)
[2018-04-07] MEDS: NICOTINE 21 MG/24 HR PATCH.TD24 TD SCH (10:19)
--- NOTE | 2018-04-07 10:58 | PDOC PROGRESS REPORT ---
Subjective Progress Note for:: 04/07/18 Subjective:: Patient not did wear CPAP or O2 Reason For Visit: ACUTE RESPIRATORY FAILURE,PLEURAL EFFUSION Physical Exam Vital Signs: Temp Pulse Resp BP Pulse Ox 98.4 F 89 18 146/79 H 94 04/07/18 03:41 04/07/18 08:30 04/07/18 08:30 04/07/18 03:41 04/07/18 08:30 Intake & Output 04/06/18 04/07/18 04/08/18 06:59 06:59 06:59 Intake Total 4402 3311 Output Total 4500 Balance -98 3311 Weight 120.1 kg 120.2 kg General appearance: PRESENT: no acute distress, cooperative, disheveled, obese Head exam: PRESENT: atraumatic, normocephalic Eye exam: PRESENT: conjunctiva pink, EOMI. ABSENT: nystagmus, periorbital swelling Mouth exam: PRESENT: moist, neck supple, tongue midline Neck exam: PRESENT: tracheal deviation. ABSENT: carotid bruit, JVD, lymphadenopathy, thyromegaly, tracheostomy Respiratory exam: PRESENT: prolonged expiratory phas, rhonchi, symmetrical, unlabored, wheezes. ABSENT: rales, retraction, stridor Cardiovascular exam: PRESENT: RRR, +S1, +S2 Pulses: PRESENT: normal radial pulses GI/Abdominal exam: PRESENT: normal bowel sounds, soft Extremities exam: PRESENT: full ROM. ABSENT: calf tenderness, clubbing, joint swelling Musculoskeletal exam: PRESENT: ambulatory, deformity, full ROM. ABSENT: dislocation Neurological exam: PRESENT: alert, awake Psychiatric exam: PRESENT: normal mood Focused psych exam: PRESENT: delusional Skin exam: PRESENT: dry, warm Results Laboratory Results: 04/05/18 09:00 04/05/18 09:00 Impressions: Head CT 04/01/18 00:00 IMPRESSION: NORMAL BRAIN CT WITHOUT CONTRAST. EVIDENCE OF ACUTE STROKE: NO. Chest X-Ray 04/01/18 14:29 IMPRESSION: Minimal pleural effusions. Cannot exclude a very limited middle lobe or right lower lobe pneumonia. Chest/Abdomen CTA 04/01/18 14:29 IMPRESSION: 1. There is no evidence of pulmonary embolus. 2. Moderate right pleural effusion with small left pleural effusion. 3. Airspace disease in the right base. Atelectasis versus pneumonia. Minimal subsegmental atelectasis in the left base. 4. Cholelithiasis. Fatty infiltration of the liver. Assessment & Plan - Diagnosis (1) Acute respiratory failure Qualifiers: Respiratory failure complication: hypoxia and hypercapnia Qualified Code(s) : J96.01 - Acute respiratory failure with hypoxia; J96.02 - Acute respiratory failure with hypercapnia; J96.02 - Acute respiratory failure with hypercapnia; J96.02 - Acute respiratory failure with hypercapnia Is this a current diagnosis for this admission?: Yes Plan: Patient must be compliant in order for therapy to work (2) Altered mental status Qualifiers: Altered mental status type: delirium Qualified Code(s): R41.0 - Disorientation, unspecified Is this a current diagnosis for this admission?: Yes Plan: Awake and alert suspect is limited to TBI and his baseline (3) Hypoxemia Is this a current diagnosis for this admission?: Yes Plan: Supplemental oxygen Erythrocytosis suggests chronic hypoxemia normal pH suggest chronic hypercapnia (4) Nicotine addiction Is this a current diagnosis for this admission?: Yes Plan: Transdermal nicotine (5) Psoriasis Is this a current diagnosis for this admission?: Yes (6) Obesity (BMI 30-39.9) Is this a current diagnosis for this admission?: Yes Plan: The above patient has failed BiPAP. This patient would benefit from noninvasive mechanical ventilation via the trilogy AVAPS/AE and faster responding AVAPS rates. The trilogy is able to provide a target tidal volume and also adjusting the EPAP pressures to maintain a patent airway as well as an oral backup rate this machine will help improve PaCO2 levels and chronic hypoximia with polythycemia. The severity of the patient's condition will lead to future hospitalizations and readmissions as well as life-threatening situations without the use of this device trilogy home vent needed for hypercapnic respiratory failure. [facility] or [facility] to follow for trilogy set up.
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
[2018-04-07 16:57] VITALS: BP 146/79
--- NOTE | 2018-04-08 08:27 | PDOC PROGRESS REPORT ---
Subjective Progress Note for:: 04/04/18 Subjective:: Patient not did wear CPAP or O2 Reason For Visit: ACUTE RESPIRATORY FAILURE,PLEURAL EFFUSION Physical Exam Vital Signs: Temp Pulse Resp BP Pulse Ox 98.2 F 87 16 168/77 H 96 04/07/18 07:21 04/07/18 13:17 04/07/18 13:17 04/07/18 07:21 04/07/18 13:17 Intake & Output 04/06/18 04/07/18 04/08/18 06:59 06:59 06:59 Intake Total 4402 3311 Output Total 4500 Balance -98 3311 Weight 120.1 kg 120.2 kg General appearance: PRESENT: no acute distress, cooperative, disheveled, obese Head exam: PRESENT: atraumatic, normocephalic Eye exam: PRESENT: conjunctiva pale, EOMI. ABSENT: nystagmus, periorbital swelling, scleral icterus Mouth exam: PRESENT: moist, neck supple, tongue midline Neck exam: ABSENT: carotid bruit, JVD, lymphadenopathy, thyromegaly, tracheal deviation, tracheostomy Respiratory exam: PRESENT: decreased breath sounds, prolonged expiratory phas, rhonchi, symmetrical, unlabored, wheezes. ABSENT: rales, retraction, stridor, tachypnea Cardiovascular exam: PRESENT: RRR, +S1, +S2 Pulses: PRESENT: normal radial pulses GI/Abdominal exam: PRESENT: diminished bowel sounds, soft Extremities exam: PRESENT: full ROM. ABSENT: clubbing, joint swelling Musculoskeletal exam: PRESENT: ambulatory, full ROM. ABSENT: deformity, dislocation Neurological exam: PRESENT: awake. ABSENT: oriented to person, oriented to place Skin exam: PRESENT: dry, warm Results Laboratory Results: 04/05/18 09:00 04/05/18 09:00 Impressions: Head CT 04/01/18 00:00 IMPRESSION: NORMAL BRAIN CT WITHOUT CONTRAST. EVIDENCE OF ACUTE STROKE: NO. Chest X-Ray 04/01/18 14:29 IMPRESSION: Minimal pleural effusions. Cannot exclude a very limited middle lobe or right lower lobe pneumonia. Chest/Abdomen CTA 04/01/18 14:29 IMPRESSION: 1. There is no evidence of pulmonary embolus. 2. Moderate right pleural effusion with small left pleural effusion. 3. Airspace disease in the right base. Atelectasis versus pneumonia. Minimal subsegmental atelectasis in the left base. 4. Cholelithiasis. Fatty infiltration of the liver. Assessment & Plan - Diagnosis (1) Acute respiratory failure Qualifiers: Respiratory failure complication: hypoxia and hypercapnia Qualified Code(s) : J96.01 - Acute respiratory failure with hypoxia; J96.02 - Acute respiratory failure with hypercapnia; J96.02 - Acute respiratory failure with hypercapnia; J96.02 - Acute respiratory failure with hypercapnia Is this a current diagnosis for this admission?: Yes Plan: Patient must be compliant in order for therapy to work (2) Altered mental status Qualifiers: Altered mental status type: delirium Qualified Code(s): R41.0 - Disorientation, unspecified Is this a current diagnosis for this admission?: Yes Plan: Awake and alert suspect is limited to TBI and his baseline (3) Hypoxemia Is this a current diagnosis for this admission?: Yes Plan: Supplemental oxygen Erythrocytosis suggests chronic hypoxemia normal pH suggest chronic hypercapnia (4) Nicotine addiction Is this a current diagnosis for this admission?: Yes Plan: Transdermal nicotine (5) Psoriasis Is this a current diagnosis for this admission?: Yes (6) Obesity (BMI 30-39.9) Is this a current diagnosis for this admission?: Yes
== END 2018-04-07 18:27 | disposition home or self-care (01) | DRG 189 ==
LOC: ER 14:05 → UNDOADMIN 17:26 → EH 17:26 → 5 20:30
PROVIDERS: ADMIT Internal Medicine; ATTEND Internal Medicine
DX: J96.01 Acute respiratory failure with hypoxia (principal); J18.9 Pneumonia, unspecified organism; J90 Pleural effusion, not elsewhere classified; J96.02 Acute respiratory failure with hypercapnia; E86.0 Dehydration; R41.82 Altered mental status, unspecified; L40.9 Psoriasis, unspecified; E66.9 Obesity, unspecified; F31.9 Bipolar disorder, unspecified; F17.210 Nicotine dependence, cigarettes, uncomplicated; Z68.35 Body mass index [BMI] 35.0-35.9, adult; Z87.820 Personal history of traumatic brain injury
CPT/HCPCS: 36415; 36600; 70450; 71045; 71275; 80048; 80053; 80164; 80307; 81001; 82550; 82553; 82803; 83036; 83605; 83735; 84439; 84443; 84481; 84484; 85025; 85027; 85610; 87040; 87086; 93005; 93010; 93306; 94640; 94660; 99291; J0360; J0696; J1200; J1940; J1956; J2920; J2930; J3490; J7512; J7620; S0028